=== PATIENT | male | born 1985 | race Caucasian/White ===

== ENCOUNTER 2023-02-01 12:06 | Emergency (ER) | payer BC ==
[~2023-02-01] VITALS: Ht 185.4 cm; Wt 77.1 kg
[2023-02-01 12:22] VITALS: BP 113/56; TEMP 98.2
[2023-02-01] MEDS ORDERED: IBUPROFEN 600 MG TABLET PO ONE (13:00)
[2023-02-01] MEDS ORDERED: IBUPROFEN 600 MG TABLET ONE (13:35)
[2023-02-01 14:02] VITALS: O2SAT 99
== END 2023-02-01 14:03 | disposition home or self-care (01) ==
LOC: ER 12:06
DX: M25.572 Pain in left ankle and joints of left foot (principal)
CPT/HCPCS: 73610-TC